=== PATIENT | male | born 1955 | race African-American/Black ===

== ENCOUNTER 2017-05-13 00:22 | Inpatient (IN) | payer MEDICAID ==
[~2017-05-13] VITALS: Ht 167.6 cm; Wt 77.1 kg
--- NOTE | 2017-05-13 00:35 | NUR ---
TO BED 8 A 61 YO MALE SENT BY DR. PADMAJA SWAN[place] FOR NONHEALING WOUND AT THE BUTTOCKS. PATIENT IS AAOX4, BED BOUND. BREATHING EVEN AND UNLABORED. NAD NOTED. VSS. NOTED WITH WOUND VAC TO THE BUTTOCK WOUND. SAFETY AND COMFORT MEASURES OBSERVED.
--- NOTE | 2017-05-13 00:45 | NUR ---
DR THAKUR AT BEDSIDE FOR EVAL.
--- NOTE | 2017-05-13 00:58 | NUR ---
started a saline lock on the right forearm g20.
[2017-05-13] MEDS ORDERED: PIPERACILLIN /TAZOBACTAM 3.375 G in IV D5W 50 ML IV ONE (01:00)
[2017-05-13] MEDS ORDERED: VANCOMYCIN 1 GM in IV D5W 250 ML IV ONE (01:00)
[2017-05-13] MEDS ORDERED: PIPERACILLIN /TAZOBACTAM 3.375 G VIAL IV ONE ×2 (01:03→04:04)
[2017-05-13] MEDS ORDERED: VANCOMYCIN 1 GM VIAL ONE (01:03)
[2017-05-13 01:19] LABS: BASOPHILS # (AUTO) 0.1 /CMM (0.0-0.2); BASOPHILS % (AUTO) 0.6 % (0.0-2.0); EOSINOPHILS # (AUTO) 0.3 /CMM (0.0-0.7); EOSINOPHILS % (AUTO) 3.4 % (0.0-6.0); HEMATOCRIT 32 % (39-51); HEMOGLOBIN 10.2 g/dL (13.5-17.5); LYMPHOCYTES # (AUTO) 2.1 /CMM (0.8-4.8); LYMPHOCYTES % (AUTO) 22.5 % (20.0-44.0); MEAN CORPUSCULAR HEMOGLOBIN 28 PG (26.0-33.0); MEAN CORPUSCULAR HGB CONC 32 g/dl (31.0-36.0); MEAN CORPUSCULAR VOLUME 87 fL (80-96); MONOCYTES # (AUTO) 0.3 /CMM (0.1-1.30); MONOCYTES % (AUTO) 3.1 % (2.0-12.0); NEUTROPHILS # (AUTO) 6.6 /CMM (1.8-8.9); NEUTROPHILS % (AUTO) 70.4 % (43.0-81.0); PLATELET COUNT (AUTO) 551 /CMM (150-450); RDW COEFFICIENT OF VARIATION 21.5 (11.5-15.0); RED BLOOD CELL COUNT(AUTO) 3.62 MIL/uL (4.5-6.0); WHITE BLOOD COUNT (AUTO) 9.4 K/uL (4.3-11.0)
[2017-05-13 01:20] LABS: APPEARANCE,URINE CLOUDY (CLEAR); BILIRUBIN,URINE NEGATIVE (NEGATIVE); BLOOD, URINE 2+ Ery/uL (NEGATIVE); COLOR,URINE YELLOW (YELLOW); KETONES,URINE NEGATIVE (NEGATIVE); LEUKOCYTE ESTERASE ,URINE 3+ (NEGATIVE); NITRITE, URINE POSITIVE (NEGATIVE); PROTEIN,URINE 1+ mg/dl (NEGATIVE); UGLUCOSE NEGATIVE (NEGATIVE); UROBILINOGEN,URINE 0.2 EU/dL (0.2)
[2017-05-13 01:25] LABS: BACTERIA,URINE Few /HPF (None Seen); CALCIUM OXALATE CRYSTALS,UR Few /HPF (None Seen); SQUAMOUS EPITHELIAL CELL,UR Few /HPF (None Seen); WBC,URINE 81-100 /HPF (0-3)
[2017-05-13 01:31] LABS: CALCIUM, SERUM 8.8 mg/dL (8.5-10.1); CARBON DIOXIDE 30 mmol/L (21-32); CHLORIDE 104 mmol/L (98-107); CREATININE 0.6 mg/dL (0.6-1.3); GLUCOSE 104 mg/dL (74-106); POTASSIUM 4.3 mmol/L (3.5-5.1); SODIUM SERUM 138 mmol/L (136-145); UREA NITROGEN, BLOOD 25 mg/dL (7-18)
[2017-05-13 01:34] LABS: INR 1.3 (0.87-1.13)
[2017-05-13 01:36] LABS: ALANINE AMINOTRANSFERASE 37 U/L (12-78); ALKALINE PHOSPHATASE 78 U/L (46-116); ASPARTATE AMINOTRANSFERASE 21 U/L (15-37); BILIRUBIN,TOTAL 0.2 mg/dL (0.2-1.0); TOTAL PROTEIN, SERUM 7.6 g/dL (6.4-8.2)
[2017-05-13 01:38] LABS: PROTHROMBIN TIME 14.2 SECS (9.5-12.7)
[2017-05-13 01:39] LABS: TROPONIN I < 0.017 ng/mL (0.00-0.056)
[2017-05-13] MEDS ORDERED: HYDR-548 PO (01:52)
[2017-05-13] MEDS ORDERED: ZINC220T PO (01:52)
[2017-05-13] MEDS ORDERED: GABA-534 PO (01:52)
[2017-05-13] MEDS ORDERED: THIA100T74 PO (01:52)
[2017-05-13] MEDS ORDERED: BACL20TA PO (01:52)
[2017-05-13] MEDS ORDERED: ASCO500T10 PO (01:52)
[2017-05-13] MEDS ORDERED: DOCU-170 PO (01:52)
[2017-05-13] MEDS ORDERED: METH500T PO (01:52)
[2017-05-13] MEDS ORDERED: CALC-883 PO (01:52)
[2017-05-13] MEDS ORDERED: ONDA4TAB11 PO (01:52)
[2017-05-13] MEDS ORDERED: MULT1CAP34 PO (01:52)
[2017-05-13] MEDS ORDERED: FOLI1TAB16 PO (01:52)
[2017-05-13] MEDS ORDERED: FERR325C PO (01:52)
[2017-05-13] MEDS ORDERED: WARF5TAB6 PO (01:52)
[2017-05-13] MEDS ORDERED: HYDR-552 PO (01:52)
[2017-05-13] MEDS ORDERED: IV NS 0.9% 1,000 ML IV PRN (01:58)
--- NOTE | 2017-05-13 01:59 | NUR ---
Report given to Rachel CALIXTO for ms admission and alberto.
[2017-05-13] MEDS ORDERED: HYDROCODONE/APAP 5/325MG 1 EACH TABLET PO PRN (02:00)
[2017-05-13] MEDS ORDERED: MAG HYDROX/AL HYDROX/SIMETH 30 ML UDC PO PRN (02:00)
[2017-05-13] MEDS ORDERED: ONDANSETRON HCL/PF 4 MG/2 ML VIAL IVP PRN (02:00)
[2017-05-13] MEDS ORDERED: ACETAMINOPHEN 325 MG TABLET PO PRN (02:00)
[2017-05-13] MEDS ORDERED: HYDROCODONE/APAP 10/325MG 1 EA TABLET PO PRN (02:00)
[2017-05-13] MEDS ORDERED: MAGNESIUM HYDROXIDE 30 ML UDC PO PRN (02:00)
[2017-05-13] MEDS ORDERED: Z GUARD REMEDY 2 OZ OINT TP PRN ×2 (02:00→13:30)
[2017-05-13] MEDS ORDERED: HYDROCODONE/APAP 10/325MG 1 EA TABLET ONE (02:10)
--- NOTE | 2017-05-13 02:25 | NUR ---
Transported patient to ms room 328-2, no incident noted. Rachel CALIXTO notified with [place] 10-325 po given in er and pt's c/o muscle spasm.
[2017-05-13 02:30] VITALS: BP 160/73
--- NOTE | 2017-05-13 02:30 | NUR ---
ADMITTING NOTE RECEIVED PT COMING FROM ER VIA [facility], PT IS EXPERIENCING SEVER MUSCLE SPASMS, HE STATES THAT THIS USUALLY HAPPENS WHEN HE RECEIVED LASIX WHICH HE SUSPECTS GETTING FROM THE FACILITY HE RECEDES IN, HAVING HAD THIS CONDITION FOR A LONG TIME PT STATES THAT SPASMS IMPROVE WITH HEAT, WARM BLANKETS PROVIDED, ALSO NORCO WAS GIVEN RECENTLY IN ER PRIOR TO TRANSPORT, PT STATES MEDICATION IS STARTING TO TAKE EFFECT, HE REFUSES TO BE TOUCHED AND EXPLAINS THAT SPASMS GET WORSE WHEN PHYSICALLY MOVING HIM OR TOUCHING HIM, WILL ATTEMPT TO DO BODY ASSESSMENT WHEN SPASMS SUBSIDE, PER REPORT RECEIVED PT HAS A WOUND VAC, ABLE TO VISUALIZE WOUND VAC MACHINE BUT UNABLE TO SEE WOUND, WILL REQUEST AN ORDER FOR WOUND CONSULT IN AM AND WILL CONTINUE TO MONITOR CLOSELY.
[2017-05-13 03:00] VITALS: BP 160/73
[2017-05-13] MEDS: PIPERACILLIN /TAZOBACTAM 3.375 G in IV D5W 50 ML IV SCH ×4 (05:11→23:13)
--- NOTE | 2017-05-13 06:34 | NUR ---
CAN DOFFER CLOSING PT REMAINED STABLE DURING TRANSMITTER CHIEF, NO SIGNIFICANT CHANGE OF CONDITION NOTED, WILL ENDORSE TO AM SHIFT FOR SHANNAN.
[2017-05-13 08:00] VITALS: BP 105/59
--- NOTE | 2017-05-13 09:02 | NUR ---
RN OPENING NOTES PATIENT BROUGHT IN LAST NIGHT FOR NON-HEALING SACRAL WOUND STAGE IV. PATIENT IS A/OX3. PATIENT RESTING QUIETLY IN BED WITH EYES CLOSED. PATIENT HAS VAC DRESSING AT THE SACRAL WOUND WITH DRAINAGE NOTED. NO S/S OF SCUTE DISTRESS. RESPIRATIONS EVEN AND UNLABORED. PATIENT SATURATING AT 99% ON RA. IV ACCESS R FOREARM 2O G. IV PATENT AND INTACT. NO EVIDENCE OF INFILTRATION OR PHLEBITIS. BED LOCKED IN THE LOWEST POSITION WITH SIDE RAILS UP X2. CALL LIGHT WITHIN REACH OF PATIENT. WILL CONTINUE TO MONITOR, ASSESS AND EDUCATE PATIENT.
[2017-05-13] MEDS ORDERED: FEE PK DOSING 1 MIN EA MC ONE (09:42)
[2017-05-13] MEDS: MULTIVITAMINS,THERAGRAN 1 UDTAB TABLET PO SCH (10:05)
[2017-05-13] MEDS: DOCUSATE SODIUM 100 MG CAPSULE PO SCH ×2 (10:05→16:31)
[2017-05-13] MEDS: THIAMINE HCL 100 MG TABLET PO SCH ×3 (10:05→16:28)
[2017-05-13] MEDS: FOLIC ACID 1 MG TABLET PO SCH (10:05)
[2017-05-13] MEDS: GABAPENTIN 300 MG CAPSULE PO SCH ×3 (10:05→16:28)
[2017-05-13] MEDS: ASCORBIC ACID 500 MG TABLET PO SCH (10:06)
[2017-05-13] MEDS: METHOCARBAMOL (500MG) 500 MG TABLET PO SCH ×3 (10:06→16:31)
[2017-05-13] MEDS: FERROUS SULFATE (325 MG) 325 MG/TAB TABLET PO SCH ×3 (10:11→16:30)
[2017-05-13] MEDS: BACLOFEN (10 MG) 10 MG TABLET PO SCH ×3 (10:11→16:31)
[2017-05-13] MEDS: ZINC SULFATE 220 MG CAPSULE PO SCH ×2 (10:11→16:28)
[2017-05-13] MEDS: CALCIUM CARB 600MG /VIT D 1 EACH TABLET PO SCH (10:11)
--- NOTE | 2017-05-13 12:05 | NUR ---
RN NOTES WOUND NURSE VISITED PATIENT AND REMOVED VAC ON WOUND. WOUND NURSE PLACED ORDERS CLEANSE WITH 1/4 STRENGTH DAKINS SOLUTION, PAT DRY, APPLY SMALL AMOUNT OF, HYDROGEL TO THE WOUND BED, COVER WOUND BED WITH SINGLE 4X4 GAUZE PADS, LIGHTLY MOISTENED WITH 1/4 STRENGTH DAKINS SOLUTION, APPLY Z GUARD TO THE, OUTSIDE EDGES OF THE WOUND, COVER WITH ABD PAD AND SECURE WITH PAPER TAPE, DAILY AND PRN SOILING., , REMOVE VAC DRESSING AND PLACE WOUND VAC THERAPY ON HOLD FOR NOW.
--- NOTE | 2017-05-13 12:10 | NUR ---
RN NOTES PATIENT VISITED BY WOUND NURSE. VAC REMOVED AND NEW DRESSING PLACED. PICTURES TAKEN OF WOUND, DOCUMENTED AND PLACED IN CHART. NEW ORDERS FOR WOUND CARE TO BE PLACED BY WOUND RN. PATIENT CLEAN AND DRY AT THIS TIME. WILL CONTINUE TO MONITOR PATIENT.
--- NOTE | 2017-05-13 13:14 | NUR ---
WOUND CARE CONSULT PATIENT SEEN AND SKIN INTEGRITY ASSESSMENT DONE. SEE HIDE HANDLER ASSESSMENT IN [facility] FOR TODAY ALONG WITH ALL RECOMMENDATIONS. TMT ORDERS RECEIVED FROM HEAVY CLEANER. PATIENT WITH CURRENT BRIDGER AT13, RECOMMEND 1ST STEP LOW AIRLOSS MATTRESS FOR SKIN MANAGEMENT AND TMT. RECOMMEND TURNING SCHED Q 2 HOURS PATIENT CONDITION PERMITS AND RECOMMEND BILATERAL HEEL FLOATING. Z GUARD ORDERED FOR MOISTURE MANAGEMENT. SURGICAL CONSULT RECOMMENDED AND DR NEGRO NOTIFIED DR MARKY SHEPPARD. ALL DISCUSSED WITH NURSING STAFF AT THE BEDSIDE. Addendum: 05/13/17 at 1324 by SYD MEEK WNDNU Amended: Links added.
[2017-05-13] MEDS ORDERED: HYDROGEL DRESSING 90 GM TUBE TP PRN (13:30)
[2017-05-13] MEDS: DAKINS QUARTER STRENGTH (0.125%) 480 ML BOTTLE TOP SCH (14:10)
[2017-05-13] MEDS: HYDROGEL DRESSING 90 GM TUBE TP SCH (14:10)
[2017-05-13] MEDS: VANCOMYCIN 1 GM in IV D5W 250 ML IV SCH (14:16)
[2017-05-13 16:00] VITALS: BP 107/58
[2017-05-13] MEDS: WARFARIN SODIUM 5 MG TABLET PO SCH (16:30)
--- NOTE | 2017-05-13 19:00 | NUR ---
RN CLOSING NOTES PATIENT RESTING IN BED WITH EYES CLOSED. PATIENT IS A/OX3. BRIANN HAS NO COMPLAINTS OF PAIN AT THIS TIME. PATIENT IS RECEIVING ABX VANCO Q12HR AND ZOSYN Q6HR. NO S/S OF ACUTE DISTRESS. RESPIRATIONS EVEN AND UNLABORED. PATIENT SATURATING AT 99% ON RA. IV ACCESS R FOREARM 2O G. IV PATENT AND INTACT. NO EVIDENCE OF INFILTRATION OR PHLEBITIS. ALL NEEDS MET DURING SHIFT. BED LOCKED IN THE LOWEST POSITION WITH SIDE RAILS UP X2. CALL LIGHT WITHIN REACH OF PATIENT. WILL GIVE REPORT TO NIGHT RN FOR CONTINUATION OF CARE.
--- NOTE | 2017-05-13 19:30 | NUR ---
MS RN INITIAL NOTE RECEIVED PT AWAKE AND ALERT, ORIENTED X3, ON BED REST DUE TO SEVERE WEAKNESS, NO COMPLAINT OF PAIN OR RESPIRATORY DISTRESS NOTED DURING PHYSICAL ASSESSMENT, PT IS CLEAN/DRY AND COMFORTABLE, SAFETY MEASURES WILL BE KEPT IN PLACE AT ALL TIMES, NEEDS WILL BE ANTICIPATED AND ATTENDED TO PROMPTLY.
[2017-05-13 20:00] VITALS: BP 109/69
[2017-05-13 20:26] VITALS: BP 109/69
[2017-05-14] MEDS: PIPERACILLIN /TAZOBACTAM 3.375 G in IV D5W 50 ML IV SCH ×4 (05:52→23:20)
--- NOTE | 2017-05-14 06:50 | NUR ---
MS RN CLOSING NOTE PT REMAINED STABLE DURING LITIGATION SUPPORT ANALYST, WILL ENDORSE TO INCOMING NURSE FOR SHANNAN.
--- NOTE | 2017-05-14 07:43 | NUR ---
RN MS OPENING NOTES RECEIVED PATIENT IN BED, ASLEEP, HOB ELEVATED, NO SOB OR DISTRESS NOTED. A/O X3. VERBALLY RESPONSIVE AND ABLE TO MAKE NEEDS KNOWN. IV INTACT AND PATENT. KEEP PATIENT CLEAN AND COMFORTABLE IN BED, CALL LIGHT WITHIN PATIENT REACH, WILL CONTINUE TO MONITOR ACCORDINGLY.
[2017-05-14 08:00] VITALS: BP 113/69
[2017-05-14] MEDS: GABAPENTIN 300 MG CAPSULE PO SCH ×3 (09:28→17:08)
[2017-05-14] MEDS: FOLIC ACID 1 MG TABLET PO SCH (09:29)
[2017-05-14] MEDS: MULTIVITAMINS,THERAGRAN 1 UDTAB TABLET PO SCH (09:29)
[2017-05-14] MEDS: ZINC SULFATE 220 MG CAPSULE PO SCH ×2 (09:29→16:57)
[2017-05-14] MEDS: DOCUSATE SODIUM 100 MG CAPSULE PO SCH ×2 (09:29→16:57)
[2017-05-14] MEDS: FERROUS SULFATE (325 MG) 325 MG/TAB TABLET PO SCH ×3 (09:29→17:08)
[2017-05-14] MEDS: ASCORBIC ACID 500 MG TABLET PO SCH (09:29)
[2017-05-14] MEDS: THIAMINE HCL 100 MG TABLET PO SCH ×3 (09:29→17:08)
[2017-05-14] MEDS: METHOCARBAMOL (500MG) 500 MG TABLET PO SCH ×3 (09:29→17:08)
[2017-05-14] MEDS: CALCIUM CARB 600MG /VIT D 1 EACH TABLET PO SCH (09:30)
[2017-05-14] MEDS: BACLOFEN (10 MG) 10 MG TABLET PO SCH ×3 (09:30→17:08)
[2017-05-14] MEDS: DAKINS QUARTER STRENGTH (0.125%) 480 ML BOTTLE TOP SCH (09:32)
[2017-05-14] MEDS: HYDROGEL DRESSING 90 GM TUBE TP SCH (09:32)
[2017-05-14 12:31] LABS: CREATININE 0.6 mg/dL (0.6-1.3); MAGNESIUM 1.9 mg/dL (1.8-2.4); PHOSPHORUS 2.9 mg/dL (2.5-4.9); POTASSIUM 3.7 mmol/L (3.5-5.1)
[2017-05-14 12:45] LABS: THYROID STIMULATING HORMONE 2.183 uIU/mL (0.358-3.74)
[2017-05-14 12:46] LABS: BASOPHILS % (AUTO) 0.5 % (0.0-2.0); EOSINOPHILS # (AUTO) 0.3 /CMM (0.0-0.7); EOSINOPHILS % (AUTO) 4.5 % (0.0-6.0); HEMATOCRIT 30 % (39-51); HEMOGLOBIN 9.8 g/dL (13.5-17.5); LYMPHOCYTES # (AUTO) 1.2 /CMM (0.8-4.8); LYMPHOCYTES % (AUTO) 17.6 % (20.0-44.0); MEAN CORPUSCULAR HEMOGLOBIN 28 PG (26.0-33.0); MEAN CORPUSCULAR HGB CONC 33 g/dl (31.0-36.0); MEAN CORPUSCULAR VOLUME 87 fL (80-96); MONOCYTES # (AUTO) 0.3 /CMM (0.1-1.30); MONOCYTES % (AUTO) 4.8 % (2.0-12.0); NEUTROPHILS # (AUTO) 4.8 /CMM (1.8-8.9); NEUTROPHILS % (AUTO) 72.6 % (43.0-81.0); PLATELET COUNT (AUTO) 54 /CMM (150-450); RDW COEFFICIENT OF VARIATION 21.5 (11.5-15.0); RED BLOOD CELL COUNT(AUTO) 3.47 MIL/uL (4.5-6.0); WHITE BLOOD COUNT (AUTO) 6.6 K/uL (4.3-11.0)
[2017-05-14 13:03] LABS: EOSINOPHILS % (MANUAL) 3 % (0-4); LYMPHOCYTES % (MANUAL) 19 % (16-48); MONOCYTES % (MANUAL) 2 % (0-11.0); NEUTROPHILS % (MANUAL) 76 (42-76)
[2017-05-14] MEDS: VANCOMYCIN 1 GM in IV D5W 250 ML IV SCH ×3 (13:22)
[2017-05-14 16:00] VITALS: BP 112/58
[2017-05-14] MEDS: WARFARIN SODIUM 5 MG TABLET PO SCH (17:00)
--- NOTE | 2017-05-14 18:10 | NUR ---
RN NOTES PATIENT SIGNED DISCHARGE PAPER AND BELONGINGS LIST. PATIENT REFUSED PICTURES.
--- NOTE | 2017-05-14 18:25 | NUR ---
RN NOTES I SPOKE TO MARTY TO GIVE REPORT TO [facility] [place] AND I WAS INFORMED THAT PATIENT IS GOING TO [facility]. CHAR IS THE NURSE PRECISION JIG GRINDER FROM [facility].
--- NOTE | 2017-05-14 19:35 | NUR ---
MS/RN NOTES RECEIVED PT. SITTING UP IN BED. AWAKE, ALERT AND ORIENTED X3. BREATHING EVEN AND UNLABORED ON ROOM AIR. NO SOB, RESPIRATORY DISTRESS OR COMPLAINTS OF PAIN NOTED AT THIS TIME. PT. WITH RIGHT FOREARM 20 GAUGE PERIPHERAL IV PRESENT, PATENT AND INTACT ADMINISTERING TO PT. NS @ 75 ML/HR. PER DAYSHIFT NURSE PT. TO BE DISCHARGED TODAY TO [facility] [place] HOWEVER WHEN CALLED TO GIVE REPORT PT. WAS REFUSED AND WAS TOLD A DIFFERENT FACILITY "[facility]" WOULD BE TAKING THE PT. PER DAYSHIFT NURSE ALL PT. EXITCARE COMPLETED AND PLACED IN CHART. PT. REFUSING PHOTOS. PER DAYSHIFT NURSE [facility] FOUNDATION ASSISTANT CALLED TWICE BUT UNABLE TO GET A HOLD OF FOUNDATION ASSISTANT. WILL FOLLOW UP WITH [facility] ASSISTANT AND WILL FOLLOW UP WITH "[facility]". BED IN LOWEST POSITION, CALL LIGHT WITHIN REACH, WILL CONTINUE TO MONITOR.
--- NOTE | 2017-05-14 19:39 | NUR ---
RN NOTES ALL NEEDS PROVIDED, ATTENDED, AND ANTICIPATED. KEPT PATIENT CLEAN AND COMFORTABLE IN BED. CALL LIGHT WITHIN PATIENT REACH, WILL CONTINUE TO MONITOR ACCORDINGLY. ENDORSED TO NEXT SHIFT RN TO CONTINUE CARE.
--- NOTE | 2017-05-14 19:50 | NUR ---
MS/RN NOTES SPOKE WITH FOLDER SEAMER [employer]AT[employer] LAI, NOTIFIED HER OF PT. SITUATION. PT. WAS REFUSED AT [facility] IN THE [facility] AND DAYSHIFT NURSE WAS TOLD PT. WILL BE D/C TO [facility]. PER LAI CALL [facility] AND GIVE THEM HER PHONE NUMBER SO THEY CAN COORDINATE PT. DISCHARGE. WILL CALL [facility]. WILL CONTINUE TO MONITOR.
[2017-05-14 20:00] VITALS: BP 115/65
--- NOTE | 2017-05-14 20:33 | NUR ---
MS/RN NOTES CALLED [facility] AND SPOKE WITH SPARKLE. PER SPARKLE THEY ARE NOT READY FOR THE PT. KERI. THEY WILL BE ABLE TO ACCEPT THE PT. ON WEDNESDAY. GAVE [facility] SECTION PLOTTER OPERATOR LAI'S PHONE NUMBER, SHE STATED SHE WILL CALL HER AND COORDINATE PT. [place]. WILL CONTINUE TO MONITOR.
--- NOTE | 2017-05-14 22:35 | NUR ---
MS/RN NOTES CHARGE NURSE RECEIVED CALL FROM DR. RONQUILLO STATING THE PT. WILL BE DISCHARGED TONIGHT TO A FACILITY IN [place]. PER DR. RONQUILLO EXPECT A CALL FROM THE FACILITY AND THE FACILITY WILL ARRANGE PT. PICKUP VIA AMBULANCE. WILL CONTINUE TO MONITOR.
--- NOTE | 2017-05-14 23:50 | NUR ---
MS/RN NOTES PT. VITAL SIGNS STABLE. PT. REFUSED TO TAKE DISCAHRGE PHOTOS. REPORT GIVEN TO SH[facility] AT [facility] IN THE [facility] FACILITY. PT. PAPERWORK WAS FAXED TO FACILITY AND RECEIVED. CALLED PT. DAUGHTER, SHE DID NOT ANSWER, MESSAGE WAS LEFT. DISCHARGE PAPERWORK/EXITCARE PROVIDED TO PT. AND EMT'S. PT. RIGHT FOREARM IV LEFT IN PLACE, PT. TO CONTINUE IV ANTIBIOTICS AT FACILITY. PT. LEFT WITH MICHAEL CATHETER PRESENT, INTACT AND IN PLACE. PT. LEFT THE FLOOR ACCOMPANIED BY EMT'S IN STABLE CONDITION.
== END 2017-05-14 23:50 | DRG 380 ==
LOC: ER 00:25 → MED 02:15
PROVIDERS: ADMIT Nurse Practitioner Acute Care; ATTEND Nurse Practitioner Acute Care
DX: L89.154 Pressure ulcer of sacral region, stage 4 (principal); E43 Unspecified severe protein-calorie malnutrition; D68.9 Coagulation defect, unspecified; R53.2 Functional quadriplegia; N39.0 Urinary tract infection, site not specified; M48.02 Spinal stenosis, cervical region; E88.09 Other disorders of plasma-protein metabolism, not elsewhere classified; D64.9 Anemia, unspecified; D75.89 Other specified diseases of blood and blood-forming organs; M06.9 Rheumatoid arthritis, unspecified; M48.06 Spinal stenosis, lumbar region; Z74.01 Bed confinement status; B96.5 Pseudomonas (aeruginosa) (mallei) (pseudomallei) as the cause of diseases classified elsewhere; B96.89 Other specified bacterial agents as the cause of diseases classified elsewhere; Z68.27 Body mass index [BMI] 27.0-27.9, adult
CPT/HCPCS: 36415; 71010-TC; 80048-TC; 80061-TC; 80076-TC; 80202-TC; 81000-TC; 83605-TC; 83735-TC; 84100-TC; 84443-TC; 84484-TC; 85025-TC; 85730-TC; 87040-TC; 87070-TC; 87081-TC; 87086-TC; 87186-TC; 97001-TC; A4216; A4606; A6248; A6253; A6402; A6403; J2543; J3370; J7030; J7050; J7060; Z7610